=== PATIENT | female | born 1990 | race Caucasian/White ===

== ENCOUNTER 2018-04-28 12:27 | Outpatient (CLI) | payer BC ==
--- NOTE | 2018-04-28 16:16 | MRI ---
MRI BRAIN WITH AND WITHOUT CONTRAST: Date: 04/28/18 Multiplanar, multisequential imaging of brain obtained. Postcontrast images were obtained with admini stration of 10 mL MultiHance IV. A pituitary protocol was followed with dynamic enhanced image of the sella turcica. INDICATION: History of prior pituitary macroadenoma removed. The date of this surgery is not specified. 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 There are no comparison studies. Current history of worsening headaches. FINDINGS: Ventricles have normal size and position. There is no evidence of restricted diffusion. No white donato er abnormality. On reviewing the pituitary images, there is an asymmetric density in the sella turcica to the left of midline measuring 7.0 mm, which could represent residual or recurrent microadenoma. Comparison with old films should be of benefit to assessing interval change. No abnormal enhancement identified in the brain. Intracranial internal carotid arteries and cerebral arteries show flow-voids. Basilar artery is paten t. Dural venous sinuses are patent. Mucosal edema in the maxillary sinuses. IMPRESSION: 1. Asymmetric nodular soft tissue signal seen in the sella turcica to the left of midline measuring 7.0 mm. Residual or recurrent microadenoma cannot be excluded. 2. MRI brain otherwise unremarkable. POS: [facility]
== END 2018-04-28 12:28 | disposition home or self-care (01) ==
LOC: SCSMRI 12:27
DX: D35.2 Benign neoplasm of pituitary gland (principal); G44.221 Chronic tension-type headache, intractable; G93.89 Other specified disorders of brain; Z98.890 Other specified postprocedural states
CPT/HCPCS: 70553